=== PATIENT | male | born 1980 | race Caucasian/White ===

== ENCOUNTER 2022-09-19 12:10 | Outpatient (CLI) | payer OTHER, SELFPAY ==
--- NOTE | ~2022-09-19 | XR_ITS ---
EXAMINATION: XR chest 2V 09/19/2022 12:30 INDICATION: Chronic cough PROCEDURE: 2 view chest COMPARISON: No prior studies for comparison. FINDINGS: The lungs are clear. The cardiomediastinal silhouette is within normal limits. There are no pleural effusions. There is no pneumothorax suspected. IMPRESSION: 1: NO ACUTE CARDIOPULMONARY DISEASE. Reviewed, dictated and finalized at location B.
== END 2022-09-19 12:11 | disposition home or self-care (01) ==
PROVIDERS: PCP Family Medicine; Visit Provider Physician Assistant
DX: R05.3 Chronic cough (principal)
CPT/HCPCS: 71046

== ENCOUNTER 2025-04-22 00:29 | Day surgery (SDC) | payer OTHER, SELFPAY ==
--- OUTSIDE RECORDS SUMMARY | 2020-08-17 08:30 | XMS_ITS | Continuity of Care Document ---
Author Organization [facility], L TD Address [address] [place] [address] Phone Care Team Providers Care Tax Processor Name Role Phone Oberreiter OD, Britni Unavailable Unavailabl e Allergies, Adverse Reactions, Alerts Substance Reaction Status Criticality No Known Drug Allergies Active No I nformation Medications Medication Instructions Dosage Effective Dates (start - stop) Status Comments prednisolone acetate 1 % eye drops,suspension instill 1 drop by Ophthalmic route Q2 hours while awake OD - Active Procedures Procedure Date EYE EXAM ESTABLISHED PAT EYE EXAM ESTABLISHED PAT Scan Image OCT/Retinal EYE EXAM ESTABLISHED PATIENT EYE EXAM, NEW PATIENT REFRACTION Scan Image OCT/Retinal EYE EXAM, NEW PATIENT VISION REFRACTION UPDATE Scan Image/ OCT, Glaucoma Vision svcs frames purchases Single Vision Lens Advance Directives Directive Yes / No Effective Date File Name No Information Encounters Encounter Description Practice Location Reason(s) For Visit Diagnoses Date Provider Providers Copied on Encounter [facility], [facility], [address], [place], [id number] , [place] tel:[phone] [facility] no problems with vision and no complaints (chief complaint) Other scleritis, right eyeRetinal edema Oberravelina Ryder. [address] , [place], [place], [id number], [place]. tel:[phone] [facility], [address] [place] [address], [id number] , [place] tel:[phone] [facility] pain, redness, light sensitivity (chief complaint) Other scleritis, right eye Mar-0 1 Obsukhi Ryder. [address], [place], [place], [id number], [place]. tel:[phone] [facility], [address] [place] [address], [id number] , [place] tel:[phone] [facility] FBS (chief complaint) Retinal edema 8 Oberreiter Britni. [address], [place], [place], [id number], [place]. tel:[phone] Referring Provider: Britni Awad, [address], [place], [address]. tel:[phone] [facility], [address] [place] [address], [id number] , [place] tel:[phone] [facility] no problems with vision and no complaints (chief complaint) Myopia, bilateralRegula r astigmatism, bilateralOpen angle with borderline finding of bilateral eyes, low riskOther retinal cysts of left eye Mar- 8 Oberreiter Britni. [address], [place], [place], [id number], [place]. tel:[phone] [facility], [address] [place] [address], [id number] , [place] tel:[phone] [facility] Tear film insufficiency, unspecifiedOpen angle with borderline glaucoma findingsOpen angle with borderline glaucoma findingsTear film insufficiency, unspecified 2 No Information [facility], [address] [place] [address], [id number] , [place] tel:[phone] [facility] No Information 2 No Information Family History Family Member Type Diagnosis Age At Onset Problem (finding) No family history of Ca taracts Father Problem (finding) hypertension Problem (finding) No family history of Re tinal disease Problem (finding) No family history of Gl aucoma Problem (finding) Family history of Diabe david mellitus Problem (finding) No family hist ory of Macular degeneration Payers Payer name Insurance type Covered green party ID Uche cassidy(s) [employer] [facility] CI [id number] Social History Type Description Quantity Date Captured Comments Alcohol Use Details Unknown Caffeine Use Details Unknown Tobacco Use Status Current non-smoker Smoking Status Never smoker Non-Smoking Tobacco Use Details : No Details Available : No Details Available Sex Male Chief Complaint And Reason For Visit From encounter dated '08/17/2020 14:30'. no problems with vision and no complaints (chief complaint). Description: The 40 Year old male presents for f/u Scleritis OD. Pt reports no problems with vision and no complaints in the right eye andleft eye since last exam. Vision good, stable and constant D & N sc. The patient denies COVID-19 symptoms - temperature normal and pain or discomfort. Pt is using Pred Acetate QID OD but states he has missed a few doses. Reason For Referral Reason For Referral No Information History Of Present Illness Encounter Date Complaint History Of Prese nt Illness no problems with vis ion and no complaints The 40 Year old male presents for f/u Scleritis OD. Pt reports no problems with vision and no complaints in the right eye and left eye since last exam. Vision good, stable and constant D & N sc. The patient denies COVID-19 symptoms - temperature normal and pain or discomfort. Pt is using Pred Acetate QID OD but states he has missed a few doses. pain, redness, light sensitivity The 40 Year old male presents for pain, redness, light sensitivity in the right eye. It started about 1 day(s) ago. Pt states that OS is sore to the touch and feels like a stabbing pain when looking at lights. Pt denies mattering or FBS. Vision good, stable and constant D & N sc. OD is unaffected per patient. The patient denies COVID-19 symptoms - temperature normal. Pt uses OTC AT 2x weekly c relief. FBS The 38 Year old male presents for F/U retinal cyst OS. Pt reports of FBS in the left eye. x several wks ago. VA not affected. The patient denies pain or discomfort. no gtts no problems with vis ion and no complaints The 38 Year old male presents for dilated exam. Pt has a hx of Astig OU. Pt requesting gls rx update, due to scratches. Pt reports no problems with vision and no complaints in the right eye and left eye. since last exam ago. It affects Vision good, stable and constant D & N c gls.. The patient denies pain or discomfort. no gtts Functional Status Date Functional Assessmen t No Information Instructions Date Instruction Additional Infor bruce Impression/Plan Impression/Plan Return in 6 months w ith MICHELLE for T & D and OCT (Macula). Related to Retinal edema Impression/Plan Related to Retin al edema Impression/Plan - 6 mo c SSK/HVF, IOP check , go nio Related to sicca GL susp: secondary t o assymetric CD ratioDry eye: - GL susp: secondary to assymetric CD ratio. Etiology and indication for baseline tests to evaluate pt risk discussed in detail c pt.Dry eye: Pt VA can be sharpened up and pt will notice increase VA specifically @ night. Advised pt to use Art tear during extended periods of reading or computer work. Eyes do become more dry @ these times and this will cause some blurred VA. Pt should also get in the habit of looking away every 15 minutes to let eyes readjust.Start: ARt tear OU QID x 2 wks then prn Related to sicca Assessments Type Assessment Date assessment Other scleritis, right eye Aug- assessment Retinal edema Patient Care Teams Name Effective Dates (start - stop) Status Members No Information
[2025-04-11 09:09] VITALS: BMI 27.8
[2025-04-22 08:07] VITALS: BP 122/85; PULSE 71; RESP 16; TEMP 36.1; O2SAT 100; BMI 27.6
--- NOTE | 2025-04-22 08:13 | P.PNAN_ITS ---
Anes - Initial Pre Proc Eval Procedure: Operation Date: 04/22/25 09:00 Proposed Procedures p Screening Colonoscopy - Bowen Chopra MD Date/Time: 04/22/25 08:13 Surgeon: Bowen Chopra MD Pre Op Diagnosis: Screening Patient Data Age: 45 Gender: M Height: 1.83 m Weight: 92.3 kg Last Vital Signs Temp 36.1 C L 04/22/25 08:07 Pulse 71 04/22/25 08:07 Resp 16 04/22/25 08:07 BP 122/85 04/22/25 08:07 Pulse Ox 100 04/22/25 08:07 O2 Del Method Room Air 04/22/25 08:07 Allergies Allergy/AdvReac Type Severity Reaction Status Date / Time poison hetal extract Allergy Severe Hives Verified 04/22/25 08:06 Home Medications ?Medication ?Instructions ?Recorded ?Confirmed ?Type No Home Medications 04/11/25 04/11/25 H istory Patient hx anesthesia problems: none Family hx anesthesia problems: none Results Review: All pre-operative results and documents have been reviewed as part of the pre-operative evaluation. [facility] Past Medical History Medical History (Updated 04/22/25 @ 08:13 by Gianfranco Artis DO) HLD (hyperlipidemia) Operculated retinal tear of left eye Social History Social History Social History: Smoking status: Never smoker Second hand tobacco smoke exposure: No Alcohol intake: current Drinks per week: 2 Alcohol use details: Occasionally Substance use: never Substance use type: does not use Do You Feel Safe in your Home?: Yes Lack of Transportation: No Lack of Food: Never True Current Housing: I Have Housing Concerned About Future Housing: No Difficulty Paying Gas/Electric Bills: No Difficulty Paying for Meds: No Currently Unemployed: No Education: Don't Know Difficulty w/ Childcare or Family Care: No Living arrangements: with family Occupation/Education: occupation Gender identity (if verbalized by the patient): Male Sexual Orientation (if Verbalized by the Patient): Straight or Heterosexual Spiritual care concerns: No Anes - Eval Final PreProcedure Day of Procedure 04/22/25 08:13 Patient weight: overweight Heart: regular rate and rhythm Lungs: clear to auscultation Airway: Mallampati scale class II Neurological: alert and oriented Last oral intake: >/= 8 hours ASA classification: II Emergent: no Anesthetic plan: proceed Anesthesia type and monitoring: general GIVS and standard monitoring Results Review: All pre-operative results and documents have been reviewed as part of the pre- operative evaluation. Informed Consent: The patient's anesthetic plan and its attendant risks and benefits were discussed with the patient/family/POA. Questions were solicited and answers provided to the satisfaction of the patient/family/POA.
[2025-04-22] MEDS: LACTATED RINGERS 1,000 ML 150 ML IV CONT (08:14)
--- NOTE | 2025-04-22 08:50 | P.HP_ITS ---
History of Present Illness History of Present Illness Consent: Risks, benefits, and alternatives have been discussed and questions answered. Patient agrees to proceed with procedure. Chief complaint: Screening Narrative: Cody Irving is a 45 year old male here for first screening colonoscopy Review of Systems Review of Systems: All systems reviewed & are unremarkable except as noted in HPI and below PMFSH Past Medical History Medical History (Updated 04/22/25 @ 08:51 by Bowen Chopra MD) Colon cancer screening HLD (hyperlipidemia) Operculated retinal tear of left eye Social History Social History Social History: Smoking status: Never smoker Second hand tobacco smoke exposure: No Alcohol intake: current Drinks per week: 2 Alcohol use details: Occasionally Substance use: never Substance use type: does not use Do You Feel Safe in your Home?: Yes Lack of Transportation: No Lack of Food: Never True Current Housing: I Have Housing Concerned About Future Housing: No Difficulty Paying Gas/Electric Bills: No Difficulty Paying for Meds: No Currently Unemployed: No Education: Don't Know Difficulty w/ Childcare or Family Care: No Living arrangements: with family Occupation/Education: occupation Gender identity (if verbalized by the patient): Male Sexual Orientation (if Verbalized by the Patient): Straight or Heterosexual Spiritual care concerns: No Meds Home Medications and Allergies Home Medications ?Medication ?Instructions ?Recorded ?Confirmed ?Type No Home Medications 04/11/25 04/11/25 H istory Allergies Allergy/AdvReac Type Severity Reaction Status Date / Time poison hetal extract Allergy Severe Hives Verified 04/22/25 08:06 Vital Signs Vital Signs - 24 hr 04/22/25 08:07 Temperature 96.9 F L Pulse Rate 71 Respiratory Rate 16 Blood Pressure 122/85 Pulse Oximetry 100 Oxygen Delivery Room Air Exam Const: General: comfortable and no acute distress HENMT: Face/Nose/Sinus: Normal nares present Eyes: General: appearance normal, both eyes and all related structures Resp: Auscultation: clear to auscultation bilaterally Cardio: Rate: regular rate Rhythm: regular rhythm GI: Inspection: non-distended GI Palp: Yes Soft to palpation Skin: General skin exam: normal color Extrem: General: normal to inspection Psych: Mental Status: mental status grossly normal Assessment and Plan Assessment and plan (1) Colon cancer screening: Code(s): Z12.11 - Encounter for screening for malignant neoplasm of colon Status: Acute Assessment and Plan: colonoscopy
--- NOTE | 2025-04-22 09:06 | S_PTH ---
PATIENT: Cody Irving LOC: [facility] Shukla#:[id number] AGE/SX: 45/M ROOM: RE04/22/[address]: Bowen Chopra MD : 1980 BED: DIS: 04/22/2025 SPEC #: [id number] RECD: 04/22/25 09:39 STATUS: REMA REQ #: [id number] ANUPAM: 04/22/25 09:[address]: Bowen Chopra DEPT: [facility] Surgical RECD BY: Lewis Resendiz ENTERED: 04/22/25 09:40 SP TYPE: Surgical OTHR DR: Mason Cuellar MD Tissues: A - Colon Polypectomy B - Colon Polypectomy Procedures: Hematoxylin and Eosin Stain Gross and Microscopic Level 4
[2025-04-22 09:11] VITALS: BP 113/78; PULSE 73; RESP 16; O2SAT 97
[2025-04-22 09:21] VITALS: BP 110/82; PULSE 70; RESP 18; O2SAT 97
[2025-04-22 09:31] VITALS: BP 113/85; PULSE 72; RESP 20; O2SAT 100
== END 2025-04-22 09:44 | disposition home or self-care (01) ==
PROVIDERS: PCP Family Medicine; Referring Provider Student in an Organized Health Care Education/Training Program; Visit Provider Internal Medicine Gastroenterology
PROC: 0DJD8ZZ Inspection of Lower Intestinal Tract, Via Natural or Artificial Opening Endoscopic (ICD-10-PCS; CPT 45378; principal; 2025-04-22 09:00)
DX: Z12.11 Encounter for screening for malignant neoplasm of colon (principal); K51.40 Inflammatory polyps of colon without complications; K63.5 Polyp of colon; K64.8 Other hemorrhoids
CPT/HCPCS: 45385; 88305; J2003; J2704; J7120